=== PATIENT | male | born 1965 | race Native Hawaiian/Other Pacific Islander ===

== ENCOUNTER 2020-01-09 21:47 | Emergency (ER) | payer OTHER ==
[~2020-01-09] VITALS: Ht 175.3 cm; Wt 104.3 kg
[2020-01-09 21:59] VITALS: TEMP 98.2
[2020-01-09 22:25] LABS: POTASSIUM 3.6 mmol/L (3.6-5.2); SODIUM 144 mmol/L (136-145)
[2020-01-09 22:35] LABS: PLATELET COUNT 280 K/uL (142-355)
[2020-01-10 01:10] VITALS: BP 137/94
== END 2020-01-10 00:58 | disposition home or self-care (01) ==
LOC: ED 21:47
PROVIDERS: Emergency Medicine
DX: R07.89 Other chest pain (principal); J44.9 Chronic obstructive pulmonary disease, unspecified
CPT/HCPCS: 36415; 80053; 82550; 82553; 84484; 85027; 85379; 93005; 94664; 96374; 99284; J2930

== ENCOUNTER 2020-02-06 15:03 | Emergency (ER) | payer OTHER ==
[~2020-02-06] VITALS: Ht 175.3 cm; Wt 108.9 kg
[2020-02-06 15:16] VITALS: TEMP 97.8
[2020-02-06 17:12] LABS: PLATELET COUNT 313 K/uL (142-355)
[2020-02-06 17:23] LABS: POTASSIUM 3.8 mmol/L (3.6-5.2)
[2020-02-06 18:58] VITALS: BP 162/89
== END 2020-02-06 18:58 | disposition home or self-care (01) ==
LOC: ED 15:03
PROVIDERS: Emergency Medicine
DX: N20.0 Calculus of kidney (principal)
CPT/HCPCS: 80053; 81000; 85027; 96372; 99283; J1885

== ENCOUNTER 2020-02-10 10:21 | Emergency (ER) | payer OTHER ==
[~2020-02-10] VITALS: Ht 175.3 cm; Wt 108.9 kg
[2020-02-10 11:23] LABS: PLATELET COUNT 272 K/uL (142-355)
[2020-02-10 11:26] LABS: POTASSIUM 4.1 mmol/L (3.6-5.2)
[2020-02-10 13:22] VITALS: BP 174/87; TEMP 98.1
== END 2020-02-10 13:24 | disposition home or self-care (01) ==
LOC: ED 10:21
PROVIDERS: Family Medicine
DX: J44.1 Chronic obstructive pulmonary disease with (acute) exacerbation (principal); I10 Essential (primary) hypertension
CPT/HCPCS: 36415; 80053; 81000; 85027; 87502; 87651; 96374; 99284; J2930

== ENCOUNTER 2020-03-01 09:19 | Emergency (ER) | payer OTHER ==
[~2020-03-01] VITALS: Ht 175.3 cm; Wt 115.2 kg
[2020-03-01 09:19] VITALS: TEMP 98.9
[2020-03-01] MEDS ORDERED: CLON0.1T16 PO (09:30)
[2020-03-01] MEDS ORDERED: B121000 MCG PO (09:30)
[2020-03-01] MEDS ORDERED: CLOP75TA2 PO (09:30)
[2020-03-01] MEDS ORDERED: LIPITOR40 MG PO (09:30)
[2020-03-01] MEDS ORDERED: ASA LOW DOSE81 MG PO (09:31)
[2020-03-01] MEDS ORDERED: DIVA500T2 PO (09:31)
[2020-03-01] MEDS ORDERED: IPRAAER INH (09:34)
[2020-03-01 09:48] LABS: PLATELET COUNT 250 K/uL (142-355)
[2020-03-01 09:49] LABS: POTASSIUM 3.8 mmol/L (3.6-5.2); SODIUM 144 mmol/L (136-145)
[2020-03-01 10:02] LABS: PARTIAL THROMBOPLASTIN TIME 22.1 SECONDS (24.5-33.6)
[2020-03-01 10:19] VITALS: BP 165/94
== END 2020-03-01 10:48 | disposition home or self-care (01) ==
LOC: ED 09:23
PROVIDERS: Hospitalist
DX: R56.9 Unspecified convulsions (principal); Z79.899 Other long term (current) drug therapy; Z51.81 Encounter for therapeutic drug level monitoring
CPT/HCPCS: 80053; 80164; 80320; 82550; 83880; 84484; 85027; 85610; 85730; 93005; 96360; 99284